=== PATIENT | female | born 1965 | race Asian ===

== ENCOUNTER 2021-05-24 10:51 | Emergency (ER) | payer OTHER ==
[~2021-05-24] VITALS: Ht 147.3 cm; Wt 81.8 kg
[2021-05-24] MEDS ORDERED: NAPR-56 PO (11:06)
[2021-05-24] MEDS ORDERED: ORPH100T2 PO (11:06)
[2021-05-24] MEDS ORDERED: TRAM50TA2 PO (11:06)
[2021-05-24 11:35] VITALS: BP 151/74
== END 2021-05-24 11:38 | disposition home or self-care (01) ==
LOC: ER 10:52
DX: M54.42 Lumbago with sciatica, left side (principal)
CPT/HCPCS: 99283